=== PATIENT | male | born 1965 | race Caucasian/White ===

== ENCOUNTER 2023-06-22 13:42 | Emergency (ER) | payer BC, OTHER ==
[2023-06-22] MEDS ORDERED: Diphtheria,Pertussis(Acell),Tetanus Vaccine 0.5 ML Syringe IM ONE (14:12)
[2023-06-22] MEDS ORDERED: Acetaminophen 325 MG Tab PO ONE (14:46)
[2023-06-22 15:40] VITALS: BP 132/75; PULSE 88
== END 2023-06-22 15:33 | disposition home or self-care (01) ==
LOC: JD.ED 13:42
DX: S81.851A Open bite, right lower leg, initial encounter (principal); Z86.16 Personal history of COVID-19; Z23 Encounter for immunization; W54.0XXA Bitten by dog, initial encounter
CPT/HCPCS: 90471; 90715; 99283; A9270; 99282

== ENCOUNTER 2023-06-24 09:18 | Emergency (ER) | payer OTHER ==
[2023-06-24 09:35] VITALS: PULSE 79
[2023-06-24] MEDS ORDERED: Amoxicillin/Clavulanate K 875-125 MG Tab PO ONE (11:06)
[2023-06-24] MEDS ORDERED: Ondansetron 4 MG Tab.DIS PO ONE (11:07)
[2023-06-24] MEDS ORDERED: Acetaminophen 325 MG Tab PO ONE (11:07)
[2023-06-24 13:06] VITALS: BP 145/76
== END 2023-06-24 13:02 | disposition home or self-care (01) ==
LOC: JD.ED 09:18
DX: R51.9 Headache, unspecified (principal); T36.0X5A Adverse effect of penicillins, initial encounter; T36.1X5A Adverse effect of cephalosporins and other beta-lactam antibiotics, initial encounter; F17.210 Nicotine dependence, cigarettes, uncomplicated; J45.909 Unspecified asthma, uncomplicated; Z88.8 Allergy status to other drugs, medicaments and biological substances
CPT/HCPCS: 99283; A9270; 99282

== ENCOUNTER 2023-11-17 21:22 | Emergency (ER) | payer SELFPAY ==
[2023-11-17 21:31] VITALS: BP 160/91; PULSE 77
[2023-11-17] MEDS ORDERED: Lidocaine 1% 5 ML VIAL INJECT ONE (22:10)
[2023-11-17] MEDS: Lidocaine 1% PF 2 ML SDV INJECT ONE ×2 (22:30)
[2023-11-17] MEDS: Cephalexin 500 MG Cap PO ONE (22:43)
[2023-11-17] MEDS: Lidocaine 1% 2 ML ONE ×2 (23:08)
== END 2023-11-17 23:00 | disposition home or self-care (01) ==
LOC: JD.ED 21:22
DX: S62.635B Displaced fracture of distal phalanx of left ring finger, initial encounter for open fracture (principal); Z88.6 Allergy status to analgesic agent; Z79.899 Other long term (current) drug therapy; W23.1XXA Caught, crushed, jammed, or pinched between stationary objects, initial encounter
CPT/HCPCS: 12002; 73140-26-LT; 73140-LT; 99283; A9270-GY; J3490

== ENCOUNTER 2024-10-31 11:27 | Emergency (ER) | payer OTHER ==
[2024-10-31 11:44] VITALS: BP 149/89; PULSE 68
[2024-10-31] MEDS: Lidocaine 1% 10 ML MDV INJECT ONE (11:58)
== END 2024-10-31 12:58 | disposition home or self-care (01) ==
LOC: JD.ED 11:27
DX: S61.211A Laceration without foreign body of left index finger without damage to nail, initial encounter (principal); J45.909 Unspecified asthma, uncomplicated; Z88.6 Allergy status to analgesic agent; W31.2XXA Contact with powered woodworking and forming machines, initial encounter
CPT/HCPCS: 12001; 73140; 99284; J2003; 99283